=== PATIENT | female | born 1975 | race Caucasian/White ===

== ENCOUNTER → 2021-11-20 15:30 | Outpatient (CLI) | payer BC, SELFPAY ==
[2021-11-20 16:11] LABS: Adenovirus,PCR Not Detected (NotDetected); Bordetella Pertussis Not Detected (NotDetected); Chlamydophila Pneumoniae, PCR Not Detected (NotDetected); Coronavirus 229E Not Detected (NotDetected); Coronavirus NL63 Not Detected (NotDetected); Coronavirus OC43 Not Detected (NotDetected); Coronovirus HKU1,PCR Not Detected (NotDetected); Human Metapneumovirus Not Detected (NotDetected); Influenza A, PCR Not Detected (NotDetected); Influenza AH1, 2009 Not Detected (NotDetected); Influenza AH1, PCR Not Detected (NotDetected); Influenza AH3,PCR Not Detected (NotDetected); Influenza B, PCR Not Detected (NotDetected); Mycoplasma Pneumoniae, PCR Not Detected (NotDetected); Parainfluenza 1, PCR Not Detected (NotDetected); Parainfluenza 2, PCR Not Detected (NotDetected); Parainfluenza 3, PCR Not Detected (NotDetected); Parainfluenza 4, PCR Not Detected (NotDetected); Respiratory Syncytial Virus Not Detected (NotDetected); Rhinovirus/Enterovirus Not Detected (NotDetected)
[2021-11-20 16:20] LABS: Basophils # 0.1 K/mm3 (0-0.2); Basophils % 0.8 % (0.1-2.0); Eosinophils # 0.3 K/mm3 (0.0-0.4); Eosinophils % 3.2 % (0.1-12.0); Hematocrit 46.9 % (37.0-47.0); Lymphocytes # 2.4 K/mm3 (0.7-4.5); Mean Corpuscular HGB Conc 31.9 g/dL (31.8-35.4); Mean Corpuscular Hemoglobin 31.9 pg (27.0-31.2); Mean Corpuscular Volume 100.1 fl (81-99); Monocytes # 0.4 K/mm3 (0.1-1.0); Neutrophils # 6.4 K/mm3 (1.8-7.8); Platelet Count 291 K/mm3 (142-424); Red Blood Count 4.68 M/mm3 (4.20-5.40); White Blood Count 9.6 K/mm3 (4.8-10.8)
== END ==
PROVIDERS: PCP Family Medicine; Visit Provider Nurse Practitioner
DX: U07.1 COVID-19 (principal); J06.9 Acute upper respiratory infection, unspecified
CPT/HCPCS: 36415; 85025; 87486; 87581; 87632; 87798; C9803; U0003; U0005

== ENCOUNTER → 2021-11-22 08:24 | Outpatient (CLI) | payer BC, SELFPAY ==
[2021-11-22] VITALS (8 sets, daily range): BP systolic 134–158; BP diastolic 68–93; PULSE 80–90; RESP 14–18; TEMP 37.2; O2SAT 96–98
== END ==
PROVIDERS: PCP Nurse Practitioner; Visit Provider Nurse Practitioner
DX: U07.1 COVID-19 (principal); Z23 Encounter for immunization
CPT/HCPCS: 96365

== ENCOUNTER → 2022-06-04 13:24 | Outpatient (POV) | payer BC, SELFPAY | PROVIDERS: Visit Provider Dermatology | DX: Z00.00 Encounter for general adult medical examination without abnormal findings (principal) ==

== ENCOUNTER → 2022-07-23 16:11 | Outpatient (POV) | payer BC, SELFPAY | PROVIDERS: Visit Provider Dermatology | DX: Z00.00 Encounter for general adult medical examination without abnormal findings (principal) ==

== ENCOUNTER 2024-02-07 18:03 | Emergency (ER) | payer BC, SELFPAY ==
[2024-02-07] VITALS (7 sets, daily range): BP systolic 121–145; BP diastolic 78–90; PULSE 57–97; RESP 16–22; TEMP 36.7–37; O2SAT 96–99; BMI 29.2
--- NOTE | 2024-02-07 18:33 | PC.NURSE ---
PATIENT SENT TO ER PER Yudy CUEVAS APRN FOR FURTHER EVALUATION. REPORT GIVEN TO Miguel Ángel CARVALHO RN AND Gregory FUENTES RN. PATIENT TRANSPORTED TO ER VIA WHEELCHAIR WITH [facility] STAFF ASSIST. AT BEDSIDE
--- NOTE | 2024-02-07 18:33 | ED_ITS ---
Discharge Plan Disposition Patient Disposition: Still a Patient Prescriptions Prescriptions: No Action oxybutynin chloride 15 mg tablet extended release 24hr 15 mg PO DAILY 90 Days Qty: 90 norethindrone-e.estradiol-iron 1 mg-10 mcg (24)/10 mcg (2) tablet 1 tab PO DAILY 84 Days Qty: 84 Referrals Follow up/Referrals: Isabel Holly PA [Primary Care Provider] - See instructions [facility] HPI General Stated complaint: AO 02/07/24 1730 laceration left thumb Mode of Arrival: Ambulatory Source of Information: Patient Limitations: No Limitations Time Seen by Provider: 02/07/24 18:33 Other (Recalled from RN notes): Yes History of Present Illness Provider Complaint: 48 yr old female presents for lac to left thumb. p states she was using hedge trimmers and her thumb was caught in trimmers and cut though the gloves. Related Data Home Medications Medication Instructions Recorded Confirmed norethindrone 1 mg-ethinyl 1 tab PO DAILY control 84 01/17/19 11/22/21 estradiol 10 mcg (24)-iron 10 days #84 tabs mcg(2) tablet oxybutynin chloride 15 mg 15 mg PO DAILY bladder 90 days #90 01/17/19 11/22/21 tablet,extended release 24 hr tabs Allergies Allergy/AdvReac Type Severity Reaction Status Date / Time azithromycin [From Zithromax] Allergy Verified 11/22/21 11:11 [facility] Disclaimer: The information contained in this section may have been updated after the patient was seen, as this information can be updated by other users. 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) Smoking Status: Never smoker alcohol intake: current current occupational status: employed Travel in the last 8 weeks: None household members: family housing: house ROS Obtained: Yes All systems reviewed & no additional complaints except as documented Constitutional Constitutional: Reports system reviewed and no additional complaints, except as documented Eyes Eyes: Reports system reviewed and no additional complaints, except as documented ENT Ears, Nose, Mouth, and Throat: Reports system reviewed and no additional complaints, except as documented Cardiovascular Cardiovascular: Reports system reviewed and no additional complaints, except as documented Respiratory Respiratory: Reports system reviewed and no additional complaints, except as documented Gastrointestinal Gastrointestingal: Reports system reviewed and no additional complaints, except as documented Musculoskeletal Musculoskeletal: Reports system reviewed and no additional complaints, except as documented Integumentary/Breasts Skin/Breast: Reports system reviewed and no additional complaints, except as documented, Reports as per HPI and Reports other (lac) Endocrine Endocrine: Reports system reviewed and no additional complaints, except as documented Hematologic/Lymphatic Henatologic/Lymphatic: Reports system reviewed and no additional complaints, except as documented Allergic/Immunologic Allergic/Immunologic: Reports system reviewed and no additional complaints, except as documented Physical Exam General General appearance: alert and in no apparent distress Head Head exam: atraumatic Eye Eye exam: Present normal appearance and PERRL ENT ENT exam: Present normal exam Respiratory Respiratory exam: Present other (did not listen) Cardiovascular Cardiovascular exam: Present other (did not assess- pt was passing out assisted ) Expanded Upper Extremity Exam Left: Hand L/R front image: 2 1. laceration (laceration slightly into nail across fat pad) Neurological Exam Neurological exam: Present alert Medical Decision Making Medical Records Medical records reviewed: Yes I reviewed the patient's medical records. Bradley Inquiry Pt receiving controlled substance: No Bradley was queried for this patient: No Medical Decision Narrative: sent to ed- report to dr walton and zahra
--- NOTE | 2024-02-07 18:36 | PC.NURSE ---
PT ARRIVED FROM [facility]
--- NOTE | 2024-02-07 19:05 | XR_ITS ---
PROCEDURE INFORMATION: Exam: XR Left Hand Exam date and time: 02/07/2024 7:06 PM Age: 48 years old Clinical indication: Injury or trauma; Other: Laceration; Finger; Left; Thumb; Additional info: Deep laceration left thumb TECHNIQUE: Imaging protocol: Radiologic exam of the left hand. Views: 1 or 2 views. COMPARISON: No relevant prior studies available. FINDINGS: Bones/joints: Comminuted and very minimally displaced thumb distal phalanx mid to distal diaphyseal and tuft fracture. Soft tissues: Bandage material overlying the thumb. IMPRESSION: Comminuted and very minimally displaced thumb distal phalanx mid to distal diaphyseal and tuft fracture.
--- NOTE | 2024-02-07 19:11 | HMH.EDGENADL ---
Discharge Plan Disposition Patient Disposition: Still a Patient Condition: Good Prescriptions Prescriptions: New amoxicillin-pot clavulanate 875-125 mg tablet 1 tab PO BID Qty: 20 0RF No Action oxybutynin chloride 15 mg tablet extended release 24hr 15 mg PO DAILY 90 Days Qty: 90 norethindrone-e.estradiol-iron 1 mg-10 mcg (24)/10 mcg (2) tablet 1 tab PO DAILY 84 Days Qty: 84 Referrals Follow up/Referrals: Isabel Holly PA [Primary Care Provider] - See instructions Dao Sparks DO [Staff Physician] - See instructions (open fx/lac L thumb) Activity Restrictions/Add. Instructions Additional Instructions/Restrictions: You were evaluated in the ER. Take the prescribed antibiotics as directed. Keep the wound clean and dry. Keep the splint in place until reevaluated by orthopedics. Make an appointment with your primary care physician for reevaluation in a few days. Clinical Impressions Clinical Impression: Laceration, Open fracture of tuft of distal phalanx of left thumb Instructions Patient Instructions: DI for Laceration Repair Discharge ED Provider: Latisha Corona General Adult HPI General Chief complaint: Wound/Laceration Stated complaint: AO 02/07/24 1730 laceration left thumb Time Seen by Provider: 02/07/24 18:33 Mode of Arrival: Ambulatory Source of Information: Patient Limitations: No Limitations History of Present Illness HPI narrative: 48-year-old female presents to the ER with concerns of left thumb laceration. Patient was using hedge tremors when she accidentally snipped her left thumb. She went to urgent care initially but was sent over to the ED for further evaluation. Patient is up-to-date on tetanus having had her most recent one in 2021. She is able to bend and straighten the thumb. Related Data Home Medications Medication Instructions Recorded Confirmed norethindrone 1 mg-ethinyl 1 tab PO DAILY control 84 01/17/19 11/22/21 estradiol 10 mcg (24)-iron 10 days #84 tabs mcg(2) tablet oxybutynin chloride 15 mg 15 mg PO DAILY bladder 90 days #90 01/17/19 11/22/21 tablet,extended release 24 hr tabs Previous Rx's Medication Instructions Recorded amoxicillin 875 mg-potassium 1 tab PO BID #20 tabs 02/07/24 clavulanate 125 mg tablet Allergies Allergy/AdvReac Type Severity Reaction Status Date / Time azithromycin [From Zithromax] Allergy Verified 11/22/21 11:11 [facility] Disclaimer: The information contained in this section may have been updated after the patient was seen, as this information can be updated by other users. 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 Status: Unknown if ever smoked alcohol intake: current current occupational status: employed Travel in the last 8 weeks: None household members: family housing: house ROS Obtained: Yes All systems reviewed & no additional complaints except as documented Integumentary/Breasts Comments: laceration Physical Exam General General appearance: alert and in no apparent distress Head Head exam: atraumatic and normocephalic Eye Eye exam: Present PERRL and EOMI ENT ENT exam: Present mucous membranes moist Neck Neck exam: Present normal inspection and full ROM Chest Chest inspection: Present symmetric chest wall rise Respiratory Respiratory exam: Absent respiratory distress or stridor Cardiovascular Cardiovascular exam: Present regular rate and normal rhythm Extremities Exam Extremities exam: Present full ROM Neurological Exam Neurological exam: Present alert, oriented X3 and motor sensory deficit (Slightly decreased sensation on the lateral aspect of the left thumb distal to the laceration, flexion and extension of the thumb intact) Psychiatric Psychiatric exam: Present normal affect and normal mood Skin Skin exam: Present warm, dry and other (Partially circumferential laceration just proximal to the left thumb nail. Slightly decreased sensation in the lateral aspect of the thumb distally, brisk capillary refill, flexion and extension intact.) Medical Decision Making Bradley Inquiry Pt receiving controlled substance: No Vital Signs: 02/07/24 18:25 02/07/24 18:36 02/07/24 18:45 Temperature 98.0 F Temperature Source Oral Pulse Rate 80 Pulse Rate [Radial] 80 80 Respiratory Rate 22 16 Blood Pressure 121/83 Blood Pressure [Right Arm] 130/84 125/78 Blood Pressure Mean 94 Blood Pressure Mean [Right Arm] 99 93 Blood Pressure Source Blood Pressure Source [Right Arm] Automatic Cuff Automatic Cuff Blood Pressure Position [Right Arm] Sitting Sitting 02 Sat by Pulse Oximetry 99 97 99 Oxygen Delivery Method Room Air Room Air Room Air 02/07/24 19:00 02/07/24 19:16 02/07/24 19:50 Temperature Temperature Source Pulse Rate 57 L Pulse Rate [Radial] Respiratory Rate Blood Pressure 131/84 145/84 H 124/83 Blood Pressure [Right Arm] Blood Pressure Mean 99 104 95 Blood Pressure Mean [Right Arm] Blood Pressure Source Blood Pressure Source [Right Arm] Blood Pressure Position [Right Arm] 02 Sat by Pulse Oximetry 98 Oxygen Delivery Method 02/07/24 22:00 Temperature 98.6 F Temperature Source Oral Pulse Rate 97 H Pulse Rate [Radial] Respiratory Rate 18 Blood Pressure 142/90 H Blood Pressure [Right Arm] Blood Pressure Mean Blood Pressure Mean [Right Arm] Blood Pressure Source Automatic Cuff Blood Pressure Source [Right Arm] Blood Pressure Position [Right Arm] 02 Sat by Pulse Oximetry Oxygen Delivery Method Room Air Orders (Tests/Meds): ED MEDICATIONS Discontinued Medications Generic Name Dose Route Start Last Admin Trade Name Freq PRN Reason Stop Dose Admin Cefazolin Sodium 2 gm 02/07/24 19:06 02/07/24 19:26 Cefazolin 1gm Vial IM 02/07/24 19:07 2 gm ONCE ONE Administration ORDERS Category Date Time Status Hand XR left 2 views [XR hand LT 2V] Stat Exams 02/07/24 19:05 Completed Medical Decision Narrative: In summary, 48-year-old female presented to the ER with concerns of left thumb laceration. Patient was transferred from urgent care for further evaluation. On initial evaluation, patient has laceration of the left thumb as described in physical exam with slight neurologic deficit but good capillary refill. Differential diagnosis includes but is not limited to laceration, foreign body, open fracture. Patient received empiric Ancef. X-ray of the left hand was ordered. On my personal interpretation, I appreciate a tuft fracture of the left thumb, see radiology read for final interpretation. This is consistent with patient's injury. Patient was consented for laceration repair. See procedure note for details. She does not require tetanus to be updated at this time. I discussed this case with Dr. Sparks including patient's findings of open fracture and laceration repair. He reviewed images and is satisfied with the repair. He recommended Augmentin and outpatient follow-up. I prescribed Augmentin. Patient was placed in an aluminum foam splint with a dressing and was given wound care instructions. Patient was given instructions on symptomatic management, follow up instructions, and return precautions for the emergency department. Patient indicated understanding and was discharged in stable condition. Procedures Miscellaneous Procedure Procedure Performed: Procedure note Procedure: Laceration repair Consent provided by: Patient, written, risks discussed included infection, bleeding, need for repeat procedure, damage to surrounding structures, poor nail healing, poor wound healing. Benefits included improved healing and hemostasis Procedure details: Wound was extensively cleaned with saline and chlorhexidine. Ring nerve block with 1% lidocaine without epinephrine applied at the base of the thumb for anesthesia. Wound was repaired with 4-0 nylon suture. 8 sutures were applied. Some debridement of wound was necessary for closure. Single layer closure. Skin glue was also applied to the wound for additional coverage and closure. Laceration at the proximal portion of the nail/nailbed included sutures and Dermabond. Nail did not have to be removed for this repair. Dressing was applied and patient was placed in AlumaFoam splint after procedure. Patient tolerated procedure well. Neurovascularly unchanged after procedure. Tolerated procedure well. Critical Care Critical Care Time Critical Care Time: No
[2024-02-07] MEDS: CEFAZOLIN 1GM VIAL 2 GM IM (19:26)
--- NOTE | 2024-02-07 19:38 | PC.NURSE ---
Wound is soaking in sterile water and chlorhexidine.
--- NOTE | 2024-02-07 20:32 | PC.NURSE ---
Supplies bedside for
== END 2024-02-07 22:02 | disposition still patient (30) ==
LOC: UTC 18:06 → ER 18:32
PROVIDERS: Emergency Provider Emergency Medicine; PCP Physician Assistant
DX: S62.522B Displaced fracture of distal phalanx of left thumb, initial encounter for open fracture (principal); W29.3XXA Contact with powered garden and outdoor hand tools and machinery, initial encounter; S61.002A Unspecified open wound of left thumb without damage to nail, initial encounter
CPT/HCPCS: 12041; 64450; 73120; 96372; 99283

== ENCOUNTER 2024-02-24 10:58 | Outpatient (CLI) | payer BC, SELFPAY ==
--- NOTE | 2024-02-24 11:01 | XR_ITS ---
FINAL REPORT CLINICAL HISTORY: Left thumb fx FINDINGS: 3 views of the left hand were obtained. There is a comminuted, nondisplaced fracture of the first distal phalanx. The fracture line does not extend to the interphalangeal joint. No other fracture is identified. IMPRESSION: Comminuted fracture of the first distal phalanx. Authenticated and ERN
== END 2024-02-24 23:59 ==
LOC: RAD 10:58
PROVIDERS: PCP Physician Assistant; Visit Provider Physician Assistant Surgical
DX: S62.522B Displaced fracture of distal phalanx of left thumb, initial encounter for open fracture (principal)
CPT/HCPCS: 73130

== ENCOUNTER 2024-03-09 09:18 | Outpatient (CLI) | payer BC, SELFPAY ==
--- NOTE | 2024-03-09 09:23 | XR_ITS ---
FINAL REPORT CLINICAL HISTORY: left thumb fx FINDINGS: Left hand Three views were obtained. There is no acute fracture or dislocation. The joint spaces appear normal. No soft tissue abnormality is identified. IMPRESSION: No acute process. Reviewed, Interpreted and Dictated by Catracho Mcbride MD Transcribed by Margarita Goodrich Authenticated and . [facility]
== END 2024-03-09 23:59 ==
PROVIDERS: PCP Physician Assistant; Visit Provider Orthopaedic Surgery
DX: M79.642 Pain in left hand (principal); S62.522B Displaced fracture of distal phalanx of left thumb, initial encounter for open fracture
CPT/HCPCS: 73130

== ENCOUNTER 2025-08-04 17:26 | Outpatient (CLI) | payer BC, SELFPAY ==
--- OUTSIDE RECORDS SUMMARY | 2024-06-02 05:15 | XMS_ITS ---
Author Organization [facility] Address [address] [place] [id number] Care Team Providers Care Card Cleaner Name Role Phone Julia Mike Primary Care Provider Isabel Holly Unavailable [phone] Allergies Allergen (clinical drug ingredient) Drug/Non Drug Allergy documented on EMR Reaction Allergy Type Onset Date Status azithromycin Zithromax syncope Drug Allergy Acti ve Results Component Value Reference Range Notes CBC Venipuncture (in house) Reviewed date:06/04/2024 10:53:31 AM Interpretation: Performing Lab: Notes/Report: wbc 9.1 3.5 - 10 lymph 25.3% 15 - 50 mid 5.3% 2 - 15 gran 69.4% 35 - 80 rbc 4.77 3.5 - 5.5 hgb 15.0 11.5 - 16.5 hct 45.6 35 - 55 mcv 95.6 75 - 100 mch 31.4 25 - 35 mchc 32.8 31 - 38 platlet 271 100 - 400 Glycohemoglobin A1c (in hous e) Reviewed date:06/04/2024 10:53:32 AM Interpretation:4.9 Performing Lab: Notes/Report: 4.9 glycohemoglobin 4.9% 5 - 6.5 % P-Comprehensive Metabolic Pa rich (CMP) Reviewed date:06/04/2024 10:53:31 AM Interpretation:Normal Performing Lab: Notes/Report: Test performed by [facility] , [address], [place] [address] Layo Tsai MD, Automatic Steel Tie Adjuster CLIA: [id number] Sodium 137 135-145 mmol/L Potassium 4.1 3.5-5.3 mmol/L Chloride 101 97-108 mmol/L CO2 23 22-32 mmol/L Glucose 94 65-99 mg/dL BUN 9 6-20 mg/dL Creatinine 0.81 0.50-1.00 mg/dL Calcium 9.4 8.6-10.4 mg/dL eGFR by Creatinine 90 >59 mL/min/1.73m2 Protein 6.9 6.0-8.3 g/dL Albumin 4.4 3.5-5.3 g/dL Alkaline Phosphatase 57 35-121 IU/L ALT (SGPT) 20 <5-47 IU/L AST (SGOT) 21 <5-40 IU/L Bilirubin, Total 0.4 <0.2-1.2 mg/dL A/G Ratio 1.8 1.1-2.5 mg/dL P-Lipid Panel Reviewed date:06/04/2024 10:53:31 AM Interpretation:chol 203, non-hdl 136 Performing Lab: Notes/Report: Test performed by [facility], [address] , [address], [place] [address] Layo Tsai MD, Automatic Steel Tie Adjuster CLIA: [id number] Cholesterol 203 <200 mg/dL Triglycerides 80 <150 mg/dL HDL Cholesterol 67 >39 mg/dL Cholesterol / HDL Ratio 3.03 0.00-4.44 Ratio Non-HDL Cholesterol 136 <130 mg/dL LDL Cholesterol (Calculation) 120 <130 mg/dL LDL Cholesterol Levels* Less than 100 mg/dL Optimal 100 to 129 mg/dL Near Optimal/ Above Optimal 130 to 159 mg/dL Borderline High 160 to 189 mg/dL High 190 mg/dL and above Very High * Categories as recommended by the 2004 ATPIII guidelines LDL/HDL Ratio 1.8 <3.3 Ratio LDL Cholesterol Patient History Test Date: 06/02/2024 LDL Results: 120 Units: mg/dL % Change: - P-TSH reflex to FT4 Reviewed date:06/04/2024 10:53:31 AM Interpretation:Normal Performing Lab: Notes/Report: Test performed by [facility] [address] [place] [address] , [address], [place] [address] Layo Tsai MD, Automatic Steel Tie Adjuster CLIA: [id number] TSH reflex to FT4 1.63 0.43-5.25 mU/L REASON FOR VISIT check up with fasting labs, Needs mammogram & colon cancer screening Medications Medication SIG (Take, Route, Frequency, Duration) Notes Start Date End Date Status BD ULTRA-FINE PEN NEEDLE KENYON 32G 4MM - ONCE DAILY *Please review for potential replacement for e-prescription and drug interaction check* 05/08/2022 Active Wegovy 1 MG/0.5ML 1 mg Subcutaneous once a week Active Triamcinolone Acetonide 0.1 % 1 application Externally three times a day as needed 06/06/2023 Active Dupixent 300 MG/2ML as directed subcutaneously every 2 weeks Active Lo Loestrin Fe 1 MG-10 MCG / 10 MCG 1 tab(s) orally once a day Active oxyBUTYnin Chloride ER 15 MG 1 tab(s) orally once a day Active Wegovy 1.7 MG/0.75ML 1.7 mg Subcutaneous once a week 06/02/2024 Active Naltrexone 3MG 1 ORALLY ONCE DAILY *Please revi ew and pick correct strength-formulat ion from Medispan options. If intended option is not shown, discontinue and re-order from Quick Search* Active Problems Problem Type SNOMED Code ICD Code Onset Dates Problem Status W/U Status Risk Notes Problem Obesity (650009089) Obesity due to excess calories without serious comorbidity, unspecified classification (E66.09) Active confirmed Vital Signs Blood pressure systolic 120 mm Hg 06/02/20 24 Blood pressure diastolic 82 mm Hg 024 Heart Rate 72 /min 06/02/2024 Height 64 in 06/02/2024 Weight 165.2 lbs 06/02/2024 BMI 28.35 kg/m2 06/02/2024 Encounters Encounter Location Date Provider Diagnosis [facility] [address] [facility] [address] [facility] [address] [place] [id number] 06/02/2024 Isabel Holly Obesity due to exces s calories without serious comorbidity, unspecified classification E66.09 ; Impaired fasting glucose R73.01 ; Screening mammogram, encounter for Z12.31 and Screening, lipid Z13.220 Assessments Encounter Date Diagnosis (ICD Code) Assessment Notes Treatment Notes Treatment Clinical Notes Section Notes 06/02/2024 Obesity due to excess calories without serious comorbidity, unspecified classification (ICD-10 - E66.09) 06/02/2024 Impaired fasting glucose (ICD-10 - R73.01) 06/02/2024 Screening mammogram, encounter for (ICD-10 - Z12.31) 06/02/2024 Screening, lipid (ICD-10 - Z13.220) 06/02/2024 Other She is UTD on her colon cancer screening. Plan Of Treatment Medication Medication Name Sig Start Date Stop Date Notes Wegovy 1.7 MG/0.75ML 1.7 mg Subcutaneous once a week 06/02 Treatment Notes Assessment Notes Other She is UTD on her co julius cancer screening. Pending Test Test Name Order Date Mammogram 06/02/2024 Next Appt Details Follow Up: via phone to repo rt test results, Reason: Provider Name:Isabel Ty Tomas y, 08/04/2025 04:45:00 PM, [address] [facility] [address] [facility], [address], [place], [id number], Progress Notes * Nik ORTEGAOB:1975 ( 50 yo F)Acc No.[id number]:06/02/2024 Progress Notes Patient: Malena GARBER Provider: JUSTINA Pryor DOB:1975 A ge:49 Y S ex:Female Date:06/02/2024 Address:[address] [place] [address] REJ[place] Swenson [id number] Pcp:Julia Mike Subjective: * Chief Complaints: * 1 . Check up with fasting labs. 2. Needs mammogram & colon cancer screening. * HPI: C ardiology: The pt is here today for a check up and fasting lab studies. Pt states she is doing well. Pt states she would like to increase the Wegovy. Pt is fasting. Denies : Chest Pain. D enies : Short of Breath. D enies : Dizziness. D enies : Palpitations. * ROS: D ERMATOLOGY: no R tristen. n o H anurag. G ASTROENTEROLOGY: no N ausea. n o V omiting. n o D iarrhea.? U ROLOGY: no D ifficulty urinating. n o B lood in urine. * Medical History: G rover's Disease. * Surgical History: w isdom teeth , lasik eye surgery , right ovary and tube removal 11/2009, cholecystectomy 09/26/2021. * Hospitalization/Major Diagno stic Procedure: n one . * Family History: F ather: alive. M other: alive. * 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: C URRENT TOBACCO USE S moking Status: Patient does NOT smoke. H ome smoke detector use: yes. Marital Status: Single. Past smoking status: no. * Medications: T aking Naltrexone 3MG CAP 1 ORALLY ONCE DAILY , Notes to Pharmacist: *Please review and pick correct strength-formulation from Medispan options. If intended option is not shown, discontinue and re-order from Quick Search*, Taking Dupixent 300 MG/2ML Solution Pen-injector as directed subcutaneously every 2 weeks , Taking oxyBUTYnin Chloride ER 15 MG Tablet Extended Release 24 Hour 1 tab(s) orally once a day , Taking Lo Loestrin Fe 1 MG-10 MCG / 10 MCG Tablet 1 tab(s) orally once a day , Taking BD ULTRA-FINE PEN NEEDLE KENYON 32G 4MM - ONCE DAILY , Notes to Pharmacist: *Please review for potential replacement for e-prescription and drug interaction check*, Taking Triamcinolone Acetonide 0.1 % Cream 1 application Externally three times a day as needed , Taking Wegovy 1 MG/0.5ML Solution Auto-injector 1 mg Subcutaneous once a week , Discontinued Meloxicam 15 MG Tablet 1 tab(s) orally as needed , Discontinued Dicyclomine HCl 10 MG Capsule 1 cap(s) orally 2 times daily , Discontinued Nystatin [id number] UNIT/GM Cream 1 application Externally three times a day as needed , Discontinued Saxenda 18 MG/3ML Solution Pen-injector 0.6mg daily x 1 week then increase by 0.6mg every week Subcutaneous once daily , Medication List reviewed and reconciled with the patient * Allergies: Z ithromax: syncope. Objective: * Vitals: W t:165.2, Temp:98.2, BP:120/82, HR:72, Nurse:[place]OR[place], Ht: 64, BMI:28.35. * Examination: G eneral Examination: General Appearance: N AD. H EENT: u nremarkable.?Oral cavity: n o lesions, mucosa moist and WNL, no erythema. N melvin: s upple, no lymphadenopathy. C hest: n ormal shape and expansion. H eart: R SR. L ungs: c lear to auscultation. A bdomen: bowel sounds present, soft and nontender, no organomegaly or masses, no guarding or rigidity. N eurologic Exam: I ntact, gait normal. S kin: n ormal, no rash. P eripheral pulses: n ormal (2+) bilaterally. E xtremities: n o leg edema. Assessment: * Assessment: 1. O besity due to excess calories without serious comorbidity, unspecified classification - E66.09 (Primary) 2 . I mpaired fasting glucose - R73.01 3 . S creening mammogram, encounter for - Z12.31 4 . S creening, lipid - Z13.220 ? Plan: * Treatment: Value Reference Range w bc 9.1 3.5 - 10 * l ymph 25.3% 15 - 50 * m id 5.3% 2 - 15 * g ran 69.4% 35 - 80 * r bc 4.77 3.5 - 5.5 * h gb 15.0 11.5 - 16.5 * h ct 45.6 35 - 55 * m cv 95.6 75 - 100 * m ch 31.4 25 - 35 * m chc 32.8 31 - 38 * p latlet 271 100 - 400 * Nae Krause 06/02/2024 12: 21:21 PM > Isabel Holly 06/04/2024 10:53:25 AM > see TE 2.?Impaired fasting glucose?LAB: P-Comprehensive Metabolic Panel (CMP) (Collection Date & Time - 06/02/2024 09:10 AM)?Normal* Value Reference Range A /G Ratio 1.8 1.1-2.5 - mg/dL * A lbumin 4.4 3.5-5.3 - g/dL * A lkaline Phosphatase 57 35-121 - IU/L * A LT (SGPT) 20 <5-47 - IU/L * A ST (SGOT) 21 <5-40 - IU/L * B ilirubin, Total 0.4 <0.2-1.2 - mg/dL * B UN 9 6-20 - mg/dL * C alcium 9.4 8.6-10.4 - mg/dL * C hloride 101 97-108 - mmol/L * C O2 23 22-32 - mmol/L * C reatinine 0.81 0.50-1.00 - mg/dL * G lucose 94 65-99 - mg/dL * P otassium 4.1 3.5-5.3 - mmol/L * S odium 137 135-145 - mmol/L * P rotein 6.9 6.0-8.3 - g/dL * e GFR by Creatinine 90 >59 - mL/min/1.73m2 * Isabel Holly 06/04/2024 10 :53:25 AM > see TE ?LAB: P-TSH reflex to FT4 (Collection Date & Time - 06/02/2024 09:10 AM)? Normal* Value Reference Range T SH reflex to FT4 1.63 0.43-5.25 - mU/L * Isabel Holly 06/04/2024 10 :53:25 AM > see TE ?LAB: Glycohemoglobin A1c (in house) (Collection Date & Time - 06/02/2024)? 4.9* Value Reference Range g lycohemoglobin 4.9% 5 - 6.5 % * NelidaKaitlinson Galindo 06/02/2024 12: 21:00 PM > Isabel Holly Ty 06/04/2024 10:53:25 AM > see TE 3.?Screening mammogram, encounter for?Imaging: Mammogram* Isabel Holly 06/02/2024 1: 27:49 PM >Agueda Mitchell 06/02/2024 2:26:11 PM > faxed to scheduling 06/02/24Agueda Mitchell 06/03/2024 1:52:57 PM > 06/14/2024 at 04:00pm 4.?Screening, lipid?LAB: P-Lipid Panel (Collection Date & Time - 06/02/2024 09:10 AM)?chol 203, non-hdl 136* Value Reference Range C holesterol / HDL Ratio 3.03 0.00-4.44 - Ratio * C holesterol 203 H <200 - mg/dL * H DL Cholesterol 67 >39 - mg/dL * L DL Cholesterol (Calculation) 120 <130 - mg/d L * L DL/HDL Ratio 1.8 <3.3 - Ratio * N on-HDL Cholesterol 136 H <130 - mg/dL * T riglycerides 80 <150 - mg/dL * AvniIsabel Crawford 06/04/2024 10 :53:25 AM > see TE 5.?Others? Notes: She is UTD on her colon cancer screening.?? * Procedure Codes: 3 6416 CAPILLARY BLOOD DRAW, 21538 GLYCATED HEMOGLOBIN TEST, Modifiers: QW , 814[address] CBC WITH AUTO DIFF, 58223 VENIPUNCT, ROUTINE* * Follow Up: v ia phone to report test results * Images: Billing Information: * Visit Code: 89869 Office Visit, Est Pt., Level 4. * Procedure Codes: 56413 CAPILLARY BLOOD DRAW. 17884 GLYCATED HEMOGLOBIN TEST. Modifiers: QW 30863 CBC WITH AUTO DIFF. 75403 VENIPUNCT, ROUTINE*. * Electronic signature of JUSTINA Thomas on 08/04/2025 at 05:30 PM EDT Sign off status: Pending * Provider: JUSTINA Pryor Date: 0 06/02/2024 Generated for Lakhwinder steinberg/Nauhm/eTransmitting on: 0 08/04/2025 05:30 PM EDT History and Physical Notes * HPI (History of Present Illness) Category Sub-Category Detail Notes Category Not es Cardiology Short of Breath Chest Pain Palpitations Dizziness Examination Category Sub-Category Detail Notes Category Not es General Examination HEENT: unremarkable Heart: RSR Lungs: clear to auscultatio n Abdomen: bowel sounds present , soft and nontender, no organomegaly or masses, no guarding or rigidity Extremities: no leg edema General Appearance: NAD Skin: normal, no rash Neurologic Exam: Intact, gait normal Neck: supple, no lymphaden opathy Oral cavity: no lesions, mucosa m oist and WNL, no erythema Peripheral pulses: normal (2+) bilatera lly Chest: normal shape and exp ansion
--- OUTSIDE RECORDS SUMMARY | 2025-08-04 17:30 | XMS_ITS | Clinical Summary ---
Author Organization [facility] Address [address] [place] [address] Phone Care Team Providers Care Plastering Supervisor Name Role Phone Julia Mike Primary Care Provider [phone] Allergies Active Allergy Reactions Criticality Noted Date Comments Adhesive Rash 09/26/2021 Azithromycin Hives High 08/30/2021 Medications omeprazole (PRILOSEC) 40 mg Oral Capsule, Delayed Release(E.C.) Take 40 mg by mouth daily. 06/27/20 21 Active oxybutynin (DITROPAN XL) 15 mg Oral Tablet Extended Rel 24 hr Take 15 mg by mouth daily. 08/13/20 21 Active LO LOESTRIN FE 1 mg-10 mcg (24)/10 mcg (2) Oral Tablet Take 1 Tablet by mouth daily. as directed 08/22/20 21 Active loratadine (CLARITIN) 10 mg Oral Tablet Activ e SAXENDA 3 mg/0.5 mL (18 mg/3 mL) SubQ Pen Injector DIRECTED SUBCUTANEOUSLY ONCE A DAY 07/31/20 21 Active oxyCODONE (ROXICODONE) 5 mg Oral Tablet Take 1 Tablet by mouth every 4 hours as needed for Major Surgery/Trauma (G89.18). 20 Tablet 09/26/2021 2:44 PM EDT 09/26/20 21 Active Additional Information Patient not taking.Reason: Therapy Completed, Reported on 02/05/2023 dicyclomine (BENTYL) 10 mg Oral Capsule TAKE 1 CAPSULE BY MOUTH TWICE A DAY 180 Capsule 3 02/19/20 22 Active naltrexone (REVIA) 50 mg Oral Tablet Take 3 mg by mouth daily. Active methylPREDNISol one (MEDROL DOSPACK) 4 mg Oral Tablets, Dose PackIndications :Right shoulder pain, unspecified chronicity,Kevin ps tendinitis of right shoulder,Rotato r cuff tendinitis, right Follow package directions 21 Tablet 02/06/20 23 Active Active Problems Problem Noted Date Diagnosed Date Upper abdominal pain 08/31/2021 Overview (08/31/2021): Added automatically from request for surgery [id number] Immunizations Immunization Administration Dates Next Due Pfizer SARS-CoV-2 Vaccine 12+ Yrs (Purple Cap) 0 12/30/2020,12/09/2020 Surgical History Surgery Date Site/Laterality Comments LASIK SALPINGO-OOPHORECTOMY LIVER RESECTION 09/26/2021 N/A LAPAROSCOPIC CHOLECYSTECTOMY [facility] of Liver Nodule; Surgeon: Christine Kay MD; Location: [facility]; Service: General Medical History Medical History Date Comments Heartburn Motion sickness Family History Medical History Relation Name Comments Breast Cancer Paternal Grandmother Anesth Problems Neg Hx Relation Name Status Comments Paternal Grandmother 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 Tobacco Use Types Packs/Day Years Used Date Smoking Tobacco: Never Smokeless Tobacco: Never Tobacco Cessation:Counseling Given: No Alcohol Use Standard Drinks/Week Comments Never 0 (1 standard drink = 0.6 oz pur e alcohol) Comments No Sex and Gender Information Value Date Recorded Sex Assigned at Not on file Legal Sex Female 4:15 PM EDT Gender Identity Not on file Sexual Orientation Not on file Obstetrics History Para Term AB IAB SAB Ectopic Multiple Livin g Live Births 0 Last Filed Vital Signs Vital Sign Reading Time Taken Comments Blood Pressure 126/76 09/26/2021 2:42 PM EDT Pulse 74 09/26/2021 2:42 PM EDT Temperature 36.6 C (97.8 F) 09/26/2021 2:25 PM EDT Respiratory Rate 16 09/26/2021 2:42 PM EDT Oxygen Saturation 100% 09/26/2021 2:42 PM EDT Inhaled Oxygen Concentration - - Weight 75.3 kg (166 lb) 09/26/2021 11:15 AM EDT Height 160 cm (5' 3 ) 09/26/2021 11:15 AM EDT Body Mass Index 29.41 09/26/2021 11:15 AM EDT Plan of Treatment Health Maintenance Due Date Last Done Comments Annual Wellness Exam 1980 Hepatitis B Vaccine (1 of 3 - 19+ 3-dose series) 1996 Cervical Cancer Screening 1998 Pap Smear 1998 HPV/Pap Cotest 2007 Cologuard 2022 FIT 2022 Sigmoidoscopy 2022 Virtual Colonography 2022 Colon Cancer Screening 10/05/2024 Colonoscopy 10/05/2024 10/05/2019 COVID-19 Vaccine ( season) 2025 05/08/2022, 12/30/2020, 12/09/2020 Influenza Vaccine (#1) 2025 Breast Cancer Screening 07/19/2026 07/19/20 24, 04/30/2022, 04/04/2021, Additional history exists DTaP/TDaP/Td (2 - Td or Tdap) 05/08/2032 05/08/2022 Meningococcal B Vaccine Aged Out No l onger eligible based on patient's age to complete this topic Pneumococcal Vaccine 0-49 Aged Out No longer eligible based on patient's age to complete this topic Procedures Procedure Name Priority Date/Time Associated Diagnosis Comments MM MAMMO DIGITAL DELIA SCREEN BILAT Routine 07/19/2024 4:39 PM EDT Encounter for screening mammogram for malignant neoplasm of breast from Last 3 Months or Most Recently Relevant to Health Maintenance Results * MM MAMMO DIGITAL DELIA SCREEN BILAT (07/19/2024 4:39 PM EDT) Anatomical Region Laterality Modality Breast Bilateral Mammography 07/19/2024 4:39 PM EDT Impressions 07/20/2024 9:22 AM EDT Negative ([id number]) RECOMMENDATION: Routine Screening Mammogram in 1 Year COMMENTS: Narrative 07/20/2024 9:22 AM EDT EXAM: MM MAMMO DIGITAL DELIA SCREEN BILAT EXAM DATE: 07/19/2024 4:39 PM INDICATION: Z12.31-Encounter for screening mammogram for malignant neoplasm of [id number] COMPARISON STUDIES: No prior studies available. TISSUE DENSITY: There are scattered areas of fibroglandular density. FINDINGS: No mammographic evidence of malignancy. Procedure Note Onesimo Grant MD - 07/20/2024 EXAM: MM MAMMO DIGITAL DELIA SCREEN BILAT EXAM DATE: 07/19/2024 4:39 PM INDICATION: Z12.31-Encounter for screening mammogram for malignantneoplasm of [id number] COMPARISON STUDIES: No prior studies available. TISSUE DENSITY: There are scattered areas of fibroglandular density. FINDINGS: No mammographic evidence of malignancy. IMPRESSION: Negative ([id number]-1) RECOMMENDATION: Routine Screening Mammogram in 1 Year COMMENTS: Smiley Ramos MD IM MAMMOGRAPHY ORDERABLES Imelda l Result from Last 3 Months or Most Recently Relevant to Health Maintenance Insurance [employer] [place] [id number] MARC[place] PPO [employer] [facility] MARCUS PPO [address] [id number] MARCUS PPO Care Teams Plastering Supervisor Relationship Specialty Start Date End Date Julia Mike [address] [facility] [address] [place] [address] PCP - General Family Medicine 11/30/18
--- OUTSIDE RECORDS SUMMARY | 2025-08-04 17:30 | XMS_ITS | Patient Health Record ---
[facility] Organization [facility] Address [address] [place] [id number] Care Team Providers Care Sheriff Detective Name Role Phone Julia Mike Primary Care Provider Isabel Holly Unavailable [phone] Allergies Allergen (clinical drug ingredient) Drug/Non Drug Allergy documented on EMR Reaction Allergy Type Onset Date Status azithromycin Zithromax syncope Drug Allergy Acti ve Reason For Referral No Information Medications Medication SIG (Take, Route, Frequency, Duration) Notes Start Date End Date Status Triamcinolone Acetonide 0.1 % 1 application Externally three times a day as needed 06/06/2023 Active BD ULTRA-FINE PEN NEEDLE KENYON 32G 4MM - ONCE DAILY *Please review for potential replacement for e-prescription and drug interaction check* 05/08/2022 Active Lo Loestrin Fe 1 MG-10 MCG / 10 MCG 1 tab(s) orally once a day Active oxyBUTYnin Chloride ER 15 MG 1 tab(s) orally once a day Active Dupixent 300 MG/2ML as directed subcutaneously every 2 weeks Active Medrol 4 MG as directed Orally 08/04/2025 Active Wegovy 1.7 MG/0.75ML 1.7 mg Subcutaneous once a week Active Naltrexone 3MG 1 ORALLY ONCE DAILY *Please revi ew and pick correct strength-formula tion from Medispan options. If intended option is not shown, discontinue and re-order from Quick Search* Not-Taking Immunizations Vaccine Route Administration Date Status Comme nts COVID 19 Pfizer Unknown 12/09/2020 Administered COVID 19 Pfizer Unknown 12/30/2020 Administered COVID 19 Pfizer IM Intramuscular 05/08/2022 Administered Josselin lam at [facility] Fluzone Quad (6months&older) IM Intramuscular 08/04/2017 Administered Fluzone Quad (6months&older) IM Intramuscular 08/04/2025 Administered Hepatitis A (adult) IM Intramuscular 09/19/2018 Administered ppd ID Intradermal 05/18/2020 Administered ppd ID Intradermal 06/09/2023 Administered Tetanus Tdap-Adacel (over 7yrs) IM Intramuscular 05/08/2022 Administered xFlu shot-36 months and older Unknown 08/19/2016 Administered Problems Problem Type SNOMED Code ICD Code Onset Dates Problem Status W/U Status Risk Notes Problem Constipation (65673759) Constipation, unspecified constipation type (K59.00) Active confirmed Problem Obese class I (finding) (411443513562303) Obesity (BMI 30.0-34.9) (E66.9) Active confirmed Problem Mixed incontinence (502831467) Urge and stress incontinence (N39.46) Active confirmed Problem Obesity (503718781) Obesity due to excess calories without serious comorbidity, unspecified classification (E66.09) Active confirmed Problem Gastroesophageal reflux disease (468464429) Gastroesophageal reflux disease, unspecified whether esophagitis present (K21.9) Active confirmed Vital Signs Heart Rate 100 /min 08/04/2025 Blood pressure diastolic 76 mm Hg 08/04/2025 Height 64 in 08/04/2025 Blood pressure systolic 118 mm Hg 08/04/2025 Weight 156.0 lbs 08/04/2025 BMI 26.77 kg/m2 08/04/2025 Encounters Encounter Location Date Provider Diagnosis [facility] [address] [facility] [address] [facility] [address] [place] [id number] 08/04/2025 Isabel Holly Acute pain of left k nee M25.562 ; Obesity due to excess calories without serious comorbidity, unspecified classification E66.09 and Encounter for immunization Z23 [facility] [address] [facility] [address] [place] [id number] 01/10/2025 Julia Mike Assessments Encounter Date Diagnosis (ICD Code) Assessment Notes Treatment Notes Treatment Clinical Notes Section Notes 08/04/2025 Acute pain of left knee (ICD-10 - M25.562) 08/04/2025 Obesity due to excess calories without serious comorbidity, unspecified classification (ICD-10 - E66.09) 08/04/2025 Encounter for immunization (ICD-10 - Z23) Plan Of Treatment Pending Test Test Name Order Date X ray : Knee, left 08/04/2025 Mammogram 06/02/2024 Next Appt Details Provider Name:Isabel aponte, 08/04/2025 04:45:00 PM, [address], [place], [place], [id number], Insurance Providers Payer Name Payer Address Payer Phone Subscriber Number Group Number Insured Name Patient Relationship to Insured Coverage Start Date Coverage End Date [employer] [address] [place] [address] [phone] [id number] Malena Ortega Self - patient is the insured Medical (General) History Medical History History ICD Code Vadim's Disease Surgical History Surgery Date(Month/Year) wisdom teeth lasik eye surgery right ovary and tube removal 11/2009 cholecystectomy 09/26/2021 Hospitalization History Reason Date(Month/Year) none
--- NOTE | 2025-08-04 17:32 | XR_ITS ---
PROCEDURE INFORMATION: Exam: XR Left Knee Exam date and time: 08/04/2025 5:33 PM Age: 50 years old Clinical indication: Anterior to lateral pain to left knee; Additional info: Pain of left knee TECHNIQUE: Imaging protocol: Radiologic exam of the left knee. Views: 3 views. COMPARISON: No relevant prior studies available. FINDINGS: Bones/joints: Normal. No significant joint effusion in the knee. Soft tissues: Normal. IMPRESSION: No acute findings in the left knee.
== END 2025-08-04 23:59 | disposition home or self-care (01) ==
LOC: RAD 17:28
PROVIDERS: PCP Physician Assistant; Visit Provider Physician Assistant
DX: M25.562 Pain in left knee (principal)
CPT/HCPCS: 73562